=== PATIENT | female | born 1940 | race Caucasian/White ===

== ENCOUNTER → 2023-04-18 | Outpatient (CLI) | payer SELFPAY ==
--- NOTE | 2023-04-18 | CYSPIN_PTH ---
PATIENT: RUY THOMAS LOC: [facility] U#:[id number] AGE/SX: 82/F ROOM: RE04/18/[address]: Dr. Lilly Barker MD : 1940 BED: DIS: 04/18/2023 SPEC #: [id number] RECD: 04/19/23 08:40 STATUS: RONAL SOTO #: [id number] ALEXX: 04/18/23 00:[address]: Lilly Barker DEPT: CYTOLOGY RECD BY: Cristina Gutierrez Tissues: Urine Procedures: Pap Stain (control) Special Stain Group II Cytospin Fluid HEADER OPERATION: Not noted PRE-OP DIAGNOSIS: Gross hematuria TISSUE SUBMITTED: Urine for cytology DIAGNOSIS CYTOLOGY Urine for cytology (cytospin): Atypical urothelial cells (AUC) noted, Hilaria System Category III. See comment. SYLVIA:chandler 04/19/2023 COMMENT Red blood cells are also noted. Clinical correlation and appropriate follow up are necessary. The Hilaria System for urine cytology diagnostic categorization was used in the evaluation of this case. Case has been reviewed in consultation with Dr. Lacey who concurs with the above diagnosis. IDC:AM CYTOLOGY STUDY Slides are reviewed. CYTOLOGY GROSS Received is 50 ml of yellow cloudy fluid labeled with the patient's name and and designated per the requisition as urine. Submitted for cytology preparation. / chandler 04/18/2023 TC:5 CPT: 78533
[2023-04-18 18:29] LABS: Cytology, Body Fluid / CSF SEE PATHOLOGY REPORT
== END | disposition home or self-care (01) ==
PROVIDERS: Visit Provider Urology
DX: R31.0 Gross hematuria (principal)
CPT/HCPCS: 88108; 88313